=== PATIENT | male | born 1990 | race African-American/Black ===

== ENCOUNTER 2018-07-31 12:49 | Emergency (ER) | payer MEDICAID, OTHER ==
[~2018-07-31] VITALS: Ht 170.2 cm; Wt 64.0 kg
[2018-07-31] MEDS ORDERED: IBUPROFEN 600MG TABLET PO ONE (17:45)
[2018-07-31 18:23] VITALS: BP 127/87
== END 2018-07-31 18:24 | disposition home or self-care (01) ==
LOC: ER 12:49
DX: S39.012A Strain of muscle, fascia and tendon of lower back, initial encounter (principal); V49.49XA Driver injured in collision with other motor vehicles in traffic accident, initial encounter; Y93.89 Activity, other specified; Y92.410 Unspecified street and highway as the place of occurrence of the external cause; F12.90 Cannabis use, unspecified, uncomplicated
CPT/HCPCS: 99283

== ENCOUNTER 2020-02-07 20:11 | Emergency (ER) | payer MEDICAID ==
[~2020-02-07] VITALS: Ht 170.2 cm; Wt 70.0 kg
[2020-02-07 20:22] VITALS: BP 121/76
== END 2020-02-07 22:10 | disposition home or self-care (01) ==
LOC: ER 20:23
DX: S01.111A Laceration without foreign body of right eyelid and periocular area, initial encounter (principal); F12.10 Cannabis abuse, uncomplicated; Y08.89XA Assault by other specified means, initial encounter; Y93.89 Activity, other specified; Y92.89 Other specified places as the place of occurrence of the external cause
CPT/HCPCS: 99281